=== PATIENT | female | born 1970 | race Hispanic/Latino ===

== ENCOUNTER 2024-10-03 18:29 | Emergency (ER) | payer BC, SELFPAY ==
[2024-10-03] VITALS (22 sets, daily range): BP systolic 106–155; BP diastolic 60–94; BMI 31.9
[2024-10-03] MEDS: NSS 1000 IV (19:46)
[2024-10-03] MEDS: ZOFRAN 4 MG IV (19:47)
[2024-10-03 19:48] LABS: % Basophils 0.7 % (0-2); % Eosinophils 1.2 % (0-6); % Lymphocytes 31.4 % (20.5-51.1); % Monocytes 6.1 % (1.7-9.3); % Neutrophils 58.6 % (42.2-75.2); Absolute Basophils 0.1 10^3/uL (0-0.2); Absolute Eosinophils 0.1 10^3/uL (0-0.7); Absolute Immature Granulocytes 0.2 10^3/uL (0-0.05); Absolute Lymphocytes 3.4 10^3/uL (1.2-3.4); Absolute Monocytes 0.7 10^3/uL (0.1-0.6); Absolute Neutrophils 6.3 10^3/uL (1.4-6.5); Hematocrit 41.4 % (37.0-47.0); Hemoglobin 13.7 g/dL (12.0-16.0); Mean Corp Hgb Conc. 33.1 g/dL (33.0-37.0); Mean Corpuscular Hgb 28.1 pg (27.0-31.0); Mean Platelet Volume 10.4 fL (7.4-10.4); Nucleated Red Blood Cells % 0 %; Platelet Count 208 10^3/uL (130-400); Red Blood Cell Count 4.87 10^6/uL (4.20-5.40); Red Cell Dist. Width 14.4 % (11.5-14.5); White Blood Cell Count 10.8 10^3/uL (4.8-10.8)
[2024-10-03] MEDS: MORPHINE SULFATE 4 MG IV (19:49)
--- NOTE | 2024-10-03 20:04 | ED.GENMED ---
History of Present Illness
General
Chief Complaint: Headache
Time Seen by Provider: 10/03/24 19:31
History of Present Illness
History of Present Illness:
54-year-old female without significant past medical history presenting for headache. Patient reports around 6 PM he was lifting a cabinet and had acute onset of headache, severe with neck pain. Reports that she then went upstairs, felt nauseous
and had an episode of vomiting as well as diarrhea. Denies any known sick contacts or preceding GI illness. Denies chest pain, difficulty breathing, abdominal pain. Denies any recent fever. Denies history of migraines or severe headaches in the
past. Denies visual changes. Denies focal weakness or sensory deficits to her extremities. Denies recent trauma or fall. Denies medical complaints
Phy Exam
Physical Exam
Physical Exam:
General: Well-appearing, no clinical signs of dehydration, nontoxic and in no acute distress
HEENT: protecting airway, pupils equal and reactive
Neck: appears supple, no cervical tenderness
CV: Normal heart rate, regular rhythm
Resp: No accessory muscle use, no increased work of breathing, lungs clear to auscultation bilaterally
Abd: Soft and non-distended, no tenderness to palpation
Extremities: No deformities, no swelling, no erythema, pulses and sensation intact
Neuro: alert, no focal neurologic deficit
: deferred
Rectal: deferred
Psych: Normal affect
Skin: Intact
Course
Orders/Labs/Results
Orders:
Orders
10/03/24 19:37
CT Head W/o Iv Contrast Urgent
Reason For Exam: sudden onset of headache
0.9% Sodium Chloride 1000 ml [Nss] 1,000 ml IV BOLUS
Morphine Sulfate 4 mg IV NOW STA
Ondansetron Injectable [Zofran] 4 mg IV NOW STA
10/03/24 19:42
COVID-19 Antigen Urgent
Source: Nasal Swab
Complete Blood Count/With Diff Urgent
Comprehensive Metabolic Panel Urgent
Influenza A+B Rapid Molecular Urgent
ALEXEI Source: Nasal Swab
Specimen Description:
10/03/24 20:59
CT Head & Neck Angio W/wo IV Urgent
Comment:
Reason For Exam: subarachnoid
Nicardipine 40 mg/200 ml [Cardene] 40 mg in 200 ml IV NOW
Currently infusing. Continue current dose and titrate:: Yes
Titrate to keep:: Other
Titrate to keep other:: systolic <140
Titrate by mg/hr:: 2.5 mg/hr
Frequency of titrations (minutes):: 5-15 minutes
Maximum dose in mg/hr:: 15
Begin to taper infusion when:: Remained at goal for 2hrs
Taper by mg/hr:: 2.5 mg/hr
Frequency of taper (minutes) if patient maintains goal:: every 15-30 minutes
Taper to off?: Yes
If infusion off & no longer maintaining goal:: Contact Provider
10/03/24 21:01
HYDROmorphone [Dilaudid] 1 mg IV NOW STA
Abnormal Lab Results
10/03/24
19:42
Abs Immat Gran (auto) 0.2 H 10^3/uL
(0-0.05)
Absolute Monos (auto) 0.7 H 10^3/uL
(0.1-0.6)
Immature Gran % 2.0 H %
(0-0.5)
Glucose 145 H mg/dl
(70-99)
AST 66 H U/L
(14-36)
ALT 118 H U/L
(0-35)
Alkaline Phosphatase 154 H U/L
(38-126)
10/03/24 19:42
10/03/24 19:42
Vital Signs
Initial and Last Documented VS:
Initial Vital Signs
Temp Pulse Resp BP Pulse Ox
98.2 F 81 16 146/94 98
10/03/24 18:34 10/03/24 18:34 10/03/24 18:34 10/03/24 18:34 10/03/24 18:34
Last Documented Vital Signs
Temp Pulse Resp BP Pulse Ox
98.2 F 76 16 118/70 91
10/03/24 18:34 10/04/24 01:00 10/04/24 00:30 10/04/24 01:00 10/04/24 01:00
MDM/Problems Addressed
MDM/Problems Addressed:
54-year-old female without significant past medical history presenting to the emergency department for acute onset of headache. Vital signs on arrival are normal.
On exam patient is in no acute distress, however uncomfortable. No focal neurologic deficit on exam, however acute onset of headache with exertional activity is concerning for possible subarachnoid hemorrhage. Given acute onset of symptoms, will
initiate workup with CT and CT angio of the brain, given symptoms less than 6 hours from arrival. Patient also had episode of vomiting and diarrhea after headache onset, so viral GI illness such as norovirus is also consideration versus influenza.
Will treat patient with IV fluids, Zofran, morphine and reassess.
20:30 -called by radiology, concern for acute subarachnoid hemorrhage. Message sent to neurosurgery on-call.
20:35 -Per neurosurgery, recommending transfer to [place]. Will consult with [facility]
21:10 -patient accepted to [place]. Requesting CT angio. Will obtain. Recommending Cardene for systolic blood pressure less than 140. Arranging transportation, per neuro okay for ground transport. Family made aware
23:00 -patient remained neurologically stable. Pending ground transfer. Blood pressure stable on Cardene drip
01:00 - Transport arrived. Patient remains alert and neurologically intact, BP controlled.
*Critical Care Note
Total Time (30-74mins, 75-104mins- exclusive of procedures): 55
comment:
The high probability of a clinically significant, sudden or life threatening deterioration of the neurovascular system(s) required my full and direct attention, intervention and personal management. The aggregate critical care time was 55 minutes.
This time is in addition to time spent performing reported procedures but includes the following:
[x] Data Review and interpretation
[x] Patient assessment and monitoring of vital signs
[x] Documentation
[x] Medication orders and management
ED Attending Note
-
Portions of this chart may have been created with voice recognition software.� Occasional wrong word or��sound alike� substitutions may have occurred due to the inherent limitations of voice recognition software.
Discharge Plan
Departure
Patient Disposition: Acute [facility]
Date of Disposition: 10/03/24
Time of Disposition: 21:00
Discharge Problem:
Subarachnoid hemorrhage, Headache
Prescriptions:
No Action
No Current Medications
0
Hospital Transfer
Other hospital: [facility]
I certify that the patient requires transfer: Yes
Discussed case with accepting physician: Dr. Shin
Reason for transfer: specialties available
Interventions
Interventions:
*Risk Screen - Suicide Last Done: 10/03/24 18:34
*General Assessment Last Done: 10/03/24 19:26
*Neglect/Abuse Screening Last Done: 10/03/24 18:34
ED- Fall Risk Assessment Last Done: 10/03/24 19:26
*ED COVID-19 Vaccine History Last Done: 10/03/24 19:26
ED- Neurological Assessment Last Done: 10/03/24 23:00
Discharge Date and Time
Print Language: FRENCH
[2024-10-03 20:08] LABS: ALT (SGPT) 118 U/L (0-35); AST (SGOT) 66 U/L (14-36); Albumin 4.7 g/dl (3.5-5.0); Alkaline Phosphatase 154 U/L (38-126); Blood Urea Nitrogen 13 mg/dl (7-17); Calcium 9.4 mg/dl (8.4-10.2); Carbon Dioxide 24 mmol/L (22-30); Chloride 103 mmol/L (98-107); Estimated Creatinine Clearance 111 ml/min; Glucose 145 mg/dl (70-99); Potassium 3.6 mmol/L (3.5-5.1); Sodium 139 mmol/L (135-145); Total Bilirubin 0.3 mg/dl (0.2-1.3); Total Protein 7.4 g/dl (6.3-8.2); eGFR > 60.00
[2024-10-03 20:19] LABS: COVID-19 Antigen Negative (Negative)
[2024-10-03] MEDS: DILAUDID 1 MG IV (21:14)
[2024-10-03] MEDS: CARDENE 200 IV (21:22)
[2024-10-04] VITALS: BP 104/59
[2024-10-04 00:15] VITALS: BP 113/70
[2024-10-04 00:30] VITALS: BP 110/69
[2024-10-04 00:45] VITALS: BP 113/72
[2024-10-04 01:00] VITALS: BP 118/70
[2024-10-04] MEDS: ZOFRAN 4 MG IV (01:23)
== END 2024-10-04 01:40 | disposition short-term general hospital (02) ==
LOC: EMR 18:29
PROVIDERS: EMERGENCY PHYSICIAN Student in an Organized Health Care Education/Training Program; FAMILY PHYSICIAN Family Medicine
DX: R51.9 Headache, unspecified (principal); M54.2 Cervicalgia; R11.2 Nausea with vomiting, unspecified; R19.7 Diarrhea, unspecified
CPT/HCPCS: 99284; 96374; 96375; 96376; 96361; 70450; 70496; 70498; 80053; 85025; 87502; 87811; Q9967

== ENCOUNTER 2024-11-09 20:21 | Emergency (ER) | payer BC, SELFPAY ==
[2024-11-09 20:23] VITALS: BP 183/103
[2024-11-09 20:51] VITALS: BP 149/86
[2024-11-09 21:00] VITALS: BP 137/81
[2024-11-09 22:04] VITALS: BMI 29.7
[2024-11-09 22:10] VITALS: BP 136/94
[2024-11-09] MEDS: NSS 1000 IV (22:13)
[2024-11-09 22:25] LABS: % Basophils 0.6 % (0-2); % Eosinophils 1.4 % (0-6); % Immature Granulocytes 0.4 % (0-0.5); % Lymphocytes 36.6 % (20.5-51.1); % Monocytes 6.6 % (1.7-9.3); % Neutrophils 54.4 % (42.2-75.2); Absolute Eosinophils 0.1 10^3/uL (0-0.7); Absolute Lymphocytes 1.8 10^3/uL (1.2-3.4); Absolute Monocytes 0.3 10^3/uL (0.1-0.6); Absolute Neutrophils 2.6 10^3/uL (1.4-6.5); Hematocrit 39.9 % (37.0-47.0); Hemoglobin 13.1 g/dL (12.0-16.0); Mean Corp Hgb Conc. 32.8 g/dL (33.0-37.0); Mean Corpuscular Hgb 27.8 pg (27.0-31.0); Mean Corpuscular Volume 84.5 fL (81.0-99.0); Mean Platelet Volume 9.8 fL (7.4-10.4); Nucleated Red Blood Cells % 0 %; Platelet Count 188 10^3/uL (130-400); Red Blood Cell Count 4.72 10^6/uL (4.20-5.40); Red Cell Dist. Width 14.2 % (11.5-14.5); White Blood Cell Count 4.9 10^3/uL (4.8-10.8)
--- NOTE | 2024-11-09 22:26 | ED.GENMED ---
History of Present Illness
General
Chief Complaint: Blood Pressure Problem
Source: patient
Exam Limitations: none
Time Seen by Provider: 11/09/24 21:11
Nursing documentation reviewed up to this point in time: agreed with
History of Present Illness
History of Present Illness:
Patient treated recently for brain aneurysm 1 month ago, currently taking Brilinta, presents to ED secondary to posterior discomfort along with 'feeling of being off', starting this afternoon. At that time, with blood pressures checked at home, it
was noted to be elevated with systolic blood pressure 150. Denies blurred vision. Denies dizziness. Denies loss of sensation or weakness. Denies nausea or vomiting. Of note, patient also has had flulike symptoms recently, consisting of
intermittent cough, body ache, and diarrhea, along with decreased appetite.
Review of Systems
Review of Systems
Allergies reviewed?: Yes
All Other Systems: ROS reviewed and negative except as documented in HPI and ROS
Constitutional: Denies fever
EENT: Reports no symptoms
Respiratory: Reports cough
Cardiac: Reports no symptoms
ABD/GI: Reports diarrhea; Denies abdominal pain
: Reports no symptoms
Musculoskeletal: Reports no symptoms
Skin: Reports no symptoms
Neurological: Reports headache and weakness
Phy Exam
Physical Exam
Physical Exam:
Physical Exam
General: no apparent distress, not acutely ill. afebrile
Head: nc/at. eomi
Neck: supple. normal range of motion.
Heart: s1/s2 regular rate and rhythm, no murmur. equal radial pulses.
Lungs: no acute respiratory distress. clear bilaterally
Abdomen: normal bowel sounds. not tender.
Neuro: alert and oriented x 3. no focal neurological deficits. normal speech.
Skin: no rash
Psychiatric: well kept. interactive and cooperative
Extremities: no edema. no calf tenderness.
Course
Orders/Labs/Results
Orders:
Orders
11/09/24 20:29
CT Head W/o Iv Contrast Urgent
Comment:
Reason For Exam: recent bleed, headache and HTN
11/09/24 21:38
0.9% Sodium Chloride 1000 ml [Nss] 1,000 ml IV BOLUS
Test Result ONCE
11/09/24 22:12
Complete Blood Count/With Diff Urgent
Comprehensive Metabolic Panel Urgent
HCG, Serum Qualitative Screen Urgent
Magnesium Urgent
Influenza A+B Rapid Molecular Urgent
ALEXEI Source: Nasal Swab
Specimen Description:
Abnormal Lab Results
11/09/24
22:12
MCHC 32.8 L g/dL
(33.0-37.0)
Creatinine 0.5 L mg/dL
(0.6-1.0)
Glucose 114 H mg/dl
(70-99)
AST 42 H U/L
(14-36)
ALT 75 H U/L
(0-35)
Alkaline Phosphatase 128 H U/L
(38-126)
11/09/24 22:12
11/09/24 22:12
Vital Signs
Initial and Last Documented VS:
Initial Vital Signs
Temp Pulse Resp BP Pulse Ox
98.3 F 79 18 183/103 97
11/09/24 20:23 11/09/24 20:23 11/09/24 20:23 11/09/24 20:23 11/09/24 20:23
Last Documented Vital Signs
Temp Pulse Resp BP Pulse Ox
98.3 F 68 13 130/84 96
11/09/24 20:23 11/09/24 23:47 11/09/24 23:47 11/09/24 23:47 11/09/24 23:47
MDM/Problems Addressed
MDM/Problems Addressed:
CT head: No acute findings. Patient reports improvement in symptoms after IV hydration. Patient is able to ambulate afterwards, independently, with steady gait. Patient will be discharged home in stable condition, to the care of her family, with
recommendation to follow-up with her primary care physician or neurosurgeon with any further concerns.
*Critical Care Note
Total Time (30-74mins, 75-104mins- exclusive of procedures): Not Applicable
ED Attending Note
-
Portions of this chart may have been created with voice recognition software.� Occasional wrong word or��sound alike� substitutions may have occurred due to the inherent limitations of voice recognition software.
Discharge Plan
Departure
Patient Disposition: Home (Routine Discharge)
Date of Disposition: 11/09/24
Time of Disposition: 23:55
Patient with high blood pressure during this ER visit?: Yes
Condition: Good
Discharge Problem:
Viral syndrome
Instructions: Headaches in adults, Dehydration in adults - ED discharge instructions
Prescriptions:
No Action
No Current Medications
0
Referrals:
NONE,* [Family Provider] -
Activity Restrictions/Additional Instructions:
As discussed, please follow-up with your primary care physician and/or neurosurgeon with any further concerns.
Interventions
Interventions:
*Risk Screen - Suicide Last Done: 11/09/24 20:28
*General Assessment Last Done: 11/09/24 20:28
*Neglect/Abuse Screening Last Done: 11/09/24 20:28
ED- Fall Risk Assessment Last Done: 11/09/24 23:01
*ED COVID-19 Vaccine History Last Done: 11/09/24 20:28
*Nursing Disposition Last Done: 11/10/24 00:00
ED- Cardiac Assessment Last Done: 11/09/24 23:05
ED- Neurological Assessment Last Done: 11/09/24 23:05
ED- Pulmonary Assessment Last Done: 11/09/24 23:05
Discharge Date and Time
Discharge Date/Time: 11/10/24 00:00
Print Language: IRISH
[2024-11-09 22:34] LABS: HCG, Serum Qualitative Screen Negative
[2024-11-09 22:38] LABS: ALT (SGPT) 75 U/L (0-35); AST (SGOT) 42 U/L (14-36); Albumin 4.6 g/dl (3.5-5.0); Alkaline Phosphatase 128 U/L (38-126); Blood Urea Nitrogen 8 mg/dl (7-17); Calcium 9.7 mg/dl (8.4-10.2); Carbon Dioxide 27 mmol/L (22-30); Chloride 104 mmol/L (98-107); Estimated Creatinine Clearance 107 ml/min; Glucose 114 mg/dl (70-99); Magnesium 2.3 mg/dl (1.6-2.3); Potassium 3.7 mmol/L (3.5-5.1); Sodium 141 mmol/L (135-145); Total Bilirubin 0.7 mg/dl (0.2-1.3); Total Protein 7.2 g/dl (6.3-8.2); eGFR > 60.00
[2024-11-09 23:00] VITALS: BP 143/84
[2024-11-09 23:47] VITALS: BP 130/84
== END 2024-11-10 | disposition home or self-care (01) ==
LOC: EMR 20:21
PROVIDERS: EMERGENCY PHYSICIAN Emergency Medicine
DX: B34.9 Viral infection, unspecified (principal); R03.0 Elevated blood-pressure reading, without diagnosis of hypertension
CPT/HCPCS: 99284; 96360; 70450; 80053; 83735; 84703; 85025; 87502

== ENCOUNTER 2025-09-29 20:48 | Observation (INO) | payer BC, SELFPAY ==
[2025-09-29] VITALS (7 sets, daily range): BP systolic 91–150; BP diastolic 65–92; BMI 26.9
--- NOTE | 2025-09-29 16:42 | ED.GENMED ---
History of Present Illness
General
Chief Complaint: Abdominal Symptoms
Source: patient
Exam Limitations: none
Time Seen by Provider: 09/29/25 16:13
History of Present Illness
History of Present Illness:
55yoF with history of brain aneurysm s/p repair, migraines, and IBS presenting for evaluation of abdominal pain. Symptoms initially began in the middle of the night last night. She was having trouble getting in a comfortable position throughout
the night and woke up with persistent abdominal pain. Pain is generalized and comes in waves. She states that it feels like contractions and pain is severe at times. She is also nauseous but has not vomited. She initially thought she may be sick
with a virus as several of her coworkers are sick with norovirus although she had 1 bowel movement today that was normal. She is otherwise asymptomatic and denies any fevers, diarrhea, urinary symptoms, chest pain, shortness of breath. Prior
abdominal surgeries include a urethral sling.
Phy Exam
Physical Exam
Physical Exam:
Appears uncomfortable, non-toxic
General Physical Exam
General Presentation: well appearing
General Skin: warm and dry
General Habitus: normal
General Mental: alert
ENT Exam
ENT Exam: normocephalic
Pulmonary Exam
Pulmonary Exam: no respiratory distress
Gastrointestinal Exam
Gastrointestinal Exam: soft, non distended and other (+Generalized abdominal tenderness. Abdomen soft, non-distended. No rebound or guarding.)
Neurological Exam
Neurological Exam: alert
Arun Coma Scale
Eye Opening: Spontaneous
Verbal Response: Oriented
Motor Response: Obeys Commands
GCS Total Score: 15
Skin Exam
Skin Exam: normal color and warm/dry
Psychiatric Exam
Psychiatric Exam: normal mood/affect
Course
Orders/Labs/Results
Orders:
Orders
09/29/25 16:41
CT Abd/pelvis W Iv Cont Urgent
Comment:
Reason For Exam: generalized abd pain
0.9% Sodium Chloride 1000 ml [Nss] 1,000 ml IV BOLUS
09/29/25 16:58
Complete Blood Count/With Diff Urgent
09/29/25 17:39
Comprehensive Metabolic Panel Urgent
Lipase Urgent
09/29/25 19:58
Electrocardiogram (*1) Urgent
Reason for Study: Vertigo / Dizzy
EKG- Treatment ONCE
09/29/25 20:04
Lactate Level [Lactic Acid] Urgent
Troponin I Urgent
Abnormal Lab Results
09/29/25 09/29/25
16:58 20:04
WBC 11.8 H 10^3/uL
(4.8-10.8)
RBC 5.42 H 10^6/uL
(4.20-5.40)
Abs Immat Gran (auto) 0.1 H 10^3/uL
(0-0.05)
Absolute Neuts (auto) 8.9 H 10^3/uL
(1.4-6.5)
Lymphocytes % 17.9 L %
(20.5-51.1)
Lactic Acid < 0.5 L mmol/L
(0.7-2.0)
09/29/25 16:58
09/29/25 17:39
Vital Signs
Initial and Last Documented VS:
Initial Vital Signs
Temp Pulse Resp BP Pulse Ox
97.7 F 93 18 150/92 98
09/29/25 15:49 09/29/25 15:49 09/29/25 15:49 09/29/25 15:49 09/29/25 15:49
Last Documented Vital Signs
Temp Pulse Resp BP Pulse Ox
97.7 F 71 16 150/92 98
09/29/25 15:49 09/29/25 16:17 09/29/25 17:06 09/29/25 15:49 09/29/25 16:47
MDM/Problems Addressed
Differential Diagnosis Includes:
55yoF here with colicky abd pain and nausea since last night. She is hypertensive with otherwise stable vitals. Patient appears uncomfortable but is non-toxic. No signs of peritonitis on abdominal exam. Differential diagnosis includes: colitis,
enteritis, viral illness, kidney stone, constipation, SBO
Initial ED plan: Check abdominal labs and CT abdomen. IV fluid bolus. She declines analgesics.
*Pulse Oximetry
SaO2: 98
Oxygen Mode of Delivery: Room air
Patient hypoxic: no
*EKG
Interpreted by ED Provider?: Yes
EKG Intrepretation Date: 09/29/25
Heart Rate: 70
Rate: normal
Rhythm: sinus
[place]: normal axis
Interval: normal interval
QRS Pattern: normal QRS
Ischemia: no ischemia
*Critical Care Note
Total Time (30-74mins, 75-104mins- exclusive of procedures): Not Applicable
Update Note
Update Note:
Labs reveal a mild leukocytosis with a WBC of 11.8. CT shows 'Long segment of abnormal small bowel demonstrating bowel wall thickening and diminished attenuation suggesting edema. Associated edema of the small bowel mesentery. There is also mild
associated ascites. Possible considerations include infectious, inflammatory, or ischemic etiology.' On reassessment, patient is feeling worse. She was in the bathroom and urinated when she suddenly became sweaty and felt like she had to pass out.
Repeat BP 91/63. IV fluids hung to gravity. EKG obtained and no ischemic changes noted. BP rapidly improved, suspect vagal episode. Will admit for observation. Lactic acid added.
ED Attending Note
-
Portions of this chart may have been created with voice recognition software.� Occasional wrong word or��sound alike� substitutions may have occurred due to the inherent limitations of voice recognition software.
Discharge Plan
Departure
Patient Disposition: Admit
Date of Disposition: 09/29/25
Time of Disposition: 20:15
Presentation/result/management discussed w/ accepting MD/DO: Hospitalist
Discharge Problem:
Abnormal CT of the abdomen, Abdominal pain
Prescriptions:
No Action
No Current Medications
0
Referrals:
Bayron Mendez MD [Family Provider, Family Practice]
Interventions
Interventions:
*General Assessment Last Done: 09/29/25 17:06
*Neglect/Abuse Screening Last Done: 09/29/25 17:06
*ED COVID-19 Vaccine History Last Done: 09/29/25 16:18
*ED Influenza Vaccine History Last Done: 09/29/25 16:18
[facility] Fall Risk Assessment Tool Last Done: 09/29/25 17:06
*Risk Screen - Suicide (C-SSRS) Last Done: 09/29/25 15:49
[facility] Assessment Last Done: 09/29/25 17:06
Discharge Date and Time
Print Language: TAJIK
[2025-09-29] MEDS: NSS 1000 IV ×2 (16:58→22:23)
[2025-09-29 17:18] LABS: Hematocrit 45.7 % (37.0-47.0); Hemoglobin 15.1 g/dL (12.0-16.0); Mean Corp Hgb Conc. 33.0 g/dL (33.0-37.0); Mean Corpuscular Volume 84.3 fL (81.0-99.0); Nucleated Red Blood Cells % 0 %; Platelet Count 259 10^3/uL (130-400); Red Cell Dist. Width 13.8 % (11.5-14.5)
[2025-09-29 18:02] LABS: ALT (SGPT) 29 U/L (0-35); AST (SGOT) 25 U/L (14-36); Albumin 3.8 g/dl (3.5-5.0); Alkaline Phosphatase 110 U/L (38-126); Blood Urea Nitrogen 14 mg/dl (7-17); Calcium 9.2 mg/dl (8.4-10.2); Carbon Dioxide 28 mmol/L (22-30); Chloride 107 mmol/L (98-107); Glucose 95 mg/dl (70-99); Lipase 84 U/L (23-300); Potassium 4.6 mmol/L (3.5-5.1); Sodium 137 mmol/L (135-145); Total Protein 6.6 g/dl (6.3-8.2); eGFR > 60.00
--- NOTE | 2025-09-29 20:42 | HPS.HSE ---
Family Physician
-
Family Physician: Bayron Tse [facility]
Chief Complaint
-
abdominal pain
History of Present Illness
55-year-old female past medical history of brain aneurysm status post repair, migraines, IBS presenting with abdominal pain. Symptoms started in the middle of last night. Pain is generalized and comes in waves like contractions. She has nausea
without vomiting. She initially thought she may be sick with a viral infection because several of her coworkers developed diarrhea in the past 2 days despite not sharing any food. She had 1 bowel movement today that was normal. Has any fevers,
diarrhea, urinary symptoms, chest pain shortness of breath.
She and her developed congestion and sore throat over the past week which has mostly improved.
She denies smoking. She drinks alcohol occasionally.
Medical History
Past Medical History
Past Medical History: Reports Other ( brain aneurysm status post repair, migraines, IBS)
Past Surgical History: Reports None
Social History
Alcohol: None
Drug: None
Personal: Single
Family History
Family History: Not pertinent
Allergies / Home Medications
Allergies reflects when Allergies were last updated in [facility].
Home Medications with original date entered in [facility]
Allergy/Medication List:
Allergies
Allergy/AdvReac Type Severity Reaction Status Date / Time
adhesive Allergy Mild Rash Verified 09/29/25 15:49
cephalexin (From Keflex) Allergy Mild Rash Verified 09/29/25 15:49
Home Medications
No Meds [No Current Medications] 10/03/24
Review of Systems
-
History Source: Patient
A 12 point ROS was completed and negative except as noted: Yes
Constitutional: Reports No Symptoms
EENT: Reports No Symptoms
Respiratory: Reports No Symptoms
Cardiac: Reports No Symptoms
Abdomen/GI: Reports See HPI
: Reports No Symptoms
Musculoskeletal: Reports No Symptoms
Skin: Reports No Symptoms
Neurological: Reports No Symptoms
Endocrine: Reports No Symptoms
Hematologic/Lymphatic: Reports No Symptoms
Psych: Reports No Symptoms
Physical Exam
Vital Signs
Vital Signs
Temp Pulse Resp BP Pulse Ox
97.7 F 62 18 119/78 98
09/29/25 15:49 09/29/25 20:30 09/29/25 20:30 09/29/25 20:04 09/29/25 16:47
Physical Exam
General: Well Developed, Well Nourished and No Apparent Distress
HEENT: NormoCephalic, Moist mucous membranes and Atraumatic
Respiratory: Clear
Cardiac: S1/S2 and Regular Rhythm; No Murmur or Rub
GI: Soft, Non Tender, Non Distended and Normal Bowel Sounds; No Organomegaly
Rectal: Deferred by Provider
Musculoskeletal: No Clubbing, No Cyanosis and No Edema
Skin: No Rash
Neuro: Nonfocal/grossly intact
Laboratory Results
-
09/29/25 16:58
09/29/25 17:39
Laboratory Results
Lactic Acid < 0.5 mmol/L (0.7-2.0) L 09/29/25 20:04
Total Bilirubin 0.5 mg/dl (0.2-1.3) 09/29/25 17:39
AST 25 U/L (14-36) 09/29/25 17:39
ALT 29 U/L (0-35) 09/29/25 17:39
Alkaline Phosphatase 110 U/L (38-126) 09/29/25 17:39
Lipase 84 U/L (23-300) 09/29/25 17:39
Data Reviewed
-
Lab Data: Labs Reviewed by me
Old Records: Reviewed
Impression/Plan
-
IMPRESSION:
PLAN:
# Infectious enteritis
-CT abdomen pelvis shows moderately prominent fluid distention of the stomach, long segment of mid to distal jejunum and possible proximal ileum circumferential bowel wall thickening with diminished attenuation suggesting edema
- N.p.o.
- IV fluids
- Checks stool culture, norovirus if diarrhea
- Zofran, Dilaudid as needed
Brain aneurysm status post repair
History of migraines
- Continue amitriptyline
History of IBS
Essential hypertension
- Continue lisinopril
Full code
DVT prophylaxis heparin
N.p.o.
[2025-09-29 20:45] LABS: Troponin I < 0.012 ng/ml
--- NOTE | 2025-09-29 21:00 | PTCARENOTE ---
Pt arrived to room 421-01. Pt ambulated from stretcher to bed. Pt AAOx3, VSS. Med rec completed and confirmed with pt, [employer] Que made aware. Oriented to room, call nelson placed within reach.
[2025-09-29] MEDS: ELAVIL 20 MG PO (22:23)
[2025-09-30 07:30] VITALS: BP 108/63
[2025-09-30] MEDS: ASPIR LOW (ENTERIC COATED) 81 MG PO (09:10)
[2025-09-30] MEDS: HEPARIN 5000 UNITS SC ×2 (09:10→19:58)
--- NOTE | 2025-09-30 09:26 | W.PN.HOSP.TC ---
Today's Communication/Plan
-
Advance diet as tolerated
Monitor for worsening symptoms
Assessment / Plan
Assessment / Plan
55yoF PMH brain aneurysm s/p surgery, migraines, HTN, IBS presenting with acute onset of abdominal pain and persistent tenderness.
AFVSS. Continued abdominal tenderness today with resolved nausea. Normal BM. Plan for clear diet and advance as tolerated. Resolution of colicky pain. Concern for partial or intermittent obstruction. Monitor on clears and advance diet as tolerated.
Consider gen surg consult if symptoms worsen.
CT: Long segment of abnormal small bowel demonstrating bowel wall thickening and diminished attenuation suggesting edema. Associated edema of the small bowel mesentery. There is also mild associated ascites. Possible considerations include
infectious, inflammatory, or ischemic etiology. No evidence of pneumatosis. Clinical correlation advised.
#abdominal pain
- Clears. Advance as tolerated
- stop IVF if taking PO
chronic
#migraines
- Continue amitriptyline
#HTN
- continue lisinopril
DVT prophylaxies: heparin
Diet: clears. advance as tolerated
Code: FULL
Anticipated Discharge: Within 24 hours
Subjective/Interval History
-
Date of Service: September 30, 2025
Pt reports cessation of contraction-like 10/10 pains with continued diffuse, low grade pain. BM yesterday without diarrhea. People at work are sick, otherwise no one at home with GI illness. She reports getting over a URI recently but no other
systemic symptoms. Nausea yesterday, none today. Known hemorrhoids of blood when wiping but no blood in stool. Last colonoscopy >5yrs ago. Post menopausal with urethral sling. Follows with fabric inspector and PCP.
Pt reports episode yesterday of possible presyncope where she got really warm, sweaty, and had low BP.
Objective Data
-
Labs:
Laboratory Results
09/30/25
08:40
WBC Pending
Hgb Pending
Hct Pending
Plt Count Pending
Sodium Pending
Potassium Pending
Chloride Pending
Carbon Dioxide Pending
BUN Pending
Creatinine Pending
Glucose Pending
Calcium Pending
Total Bilirubin Pending
AST Pending
ALT Pending
Alkaline Phosphatase Pending
Vital Signs:
Vital Signs
Temp Pulse Resp BP Pulse Ox
98.7 F 63 17 108/63 98
09/30/25 07:30 09/30/25 07:30 09/30/25 07:30 09/30/25 07:30 09/30/25 07:30
Review of Systems
-
History Source: Patient
All other systems: Reviewed and negative
Physical Exam
-
General: Well Developed, Well Nourished and No Apparent Distress
HEENT: Normocephalic, Atraumatic and Moist Mucous Membranes
Respiratory: Clear to Auscultation and Non Labored Respirations
Cardiac: Regular Rhythm and S1/S2
GI: Soft, Nondistended and Tender (epigastric tenderness most severe, diffuse tenderness)
Musculoskeletal: No Edema (trace edema R hand w IV)
Skin: Warm and Dry
Neuro: AO x 3 and Nonfocal/Grossly Intact
Hematologic / Lymphatic: No Lymphadenopathy
Psych: Calm
[2025-09-30 09:27] LABS: Hematocrit 41.1 % (37.0-47.0); Hemoglobin 13.4 g/dL (12.0-16.0); Mean Corp Hgb Conc. 32.6 g/dL (33.0-37.0); Mean Corpuscular Volume 86.5 fL (81.0-99.0); Nucleated Red Blood Cells % 0 %; Platelet Count 240 10^3/uL (130-400); Red Cell Dist. Width 13.9 % (11.5-14.5)
[2025-09-30 09:35] LABS: ALT (SGPT) 25 U/L (0-35); AST (SGOT) 22 U/L (14-36); Albumin 3.4 g/dl (3.5-5.0); Alkaline Phosphatase 91 U/L (38-126); Blood Urea Nitrogen 11 mg/dl (7-17); Calcium 9.1 mg/dl (8.4-10.2); Carbon Dioxide 29 mmol/L (22-30); Chloride 107 mmol/L (98-107); Estimated Creatinine Clearance 84 ml/min; Glucose 90 mg/dl (70-99); Potassium 4.5 mmol/L (3.5-5.1); Sodium 138 mmol/L (135-145); Total Protein 5.8 g/dl (6.3-8.2); eGFR > 60.00
[2025-09-30] MEDS: MIRALAX 17 GRAMS PO (11:42)
[2025-09-30] MEDS: NSS 1000 IV (11:42)
--- NOTE | 2025-09-30 13:36 | PTCARENOTE ---
Patient advanced to clears--patient tolerating diet. Miralax administered. No nausea. Patient is now passing flatus. Will advance diet as tolerated.
[2025-09-30 14:29] VITALS: BP 127/70
[2025-09-30 21:09] VITALS: BP 116/70
[2025-09-30] MEDS: ELAVIL 20 MG PO (21:11)
[2025-09-30] MEDS: ZESTRIL 5 MG PO (21:13)
[2025-09-30 23:42] VITALS: BP 109/64
--- NOTE | 2025-10-01 07:05 | W.PN.HOSP.TC ---
Today's Communication/Plan
-
Advance diet to low residue
Try dicylcomine
Assessment / Plan
Assessment / Plan
55yoF [facility] brain aneurysm s/p surgery, migraines, HTN, IBS presenting with acute onset of abdominal pain and persistent tenderness.
AFVSS. Continued abdominal tenderness today with resolved nausea. Normal BM. Plan for clear diet and advance as tolerated. Resolution of colicky pain. Concern for partial or intermittent obstruction. Monitor on clears and advance diet as tolerated.
Consider gen surg consult if symptoms worsen.
CT: Long segment of abnormal small bowel demonstrating bowel wall thickening and diminished attenuation suggesting edema. Associated edema of the small bowel mesentery. There is also mild associated ascites. Possible considerations include
infectious, inflammatory, or ischemic etiology. No evidence of pneumatosis. Clinical correlation advised.
09/21 AFVSS. Continued cramps overnight and tender today. No BM. Tolerating diet well without nausea or vomiting. Plan to advance to low residue. Try dicyclomine for possible IBS-C related pain.
#abdominal pain
- Clears. Advance as tolerated; low residue today.
- stop IVF if taking PO
chronic
#migraines
- Continue amitriptyline
#HTN
- continue lisinopril
DVT prophylaxies: heparin
Diet: low residue
Code: FULL
Anticipated Discharge: Within 24 hours
Subjective/Interval History
-
Date of Service: October 01, 2025
Pt reports contraction like pain overnight for a short peroid of time; she did not take medications at that time. Now she is reporting continued abdominal tenderness. No BM overnight. However, overall symptoms are improving. Hx IBS-C with BM every
3-4 days or more.
Objective Data
-
Vital Signs:
Vital Signs
Temp Pulse Resp BP Pulse Ox
98.7 F 68 16 109/64 95
09/30/25 23:42 09/30/25 23:42 09/30/25 23:42 09/30/25 23:42 10/01/25 01:26
Review of Systems
-
History Source: Patient
All other systems: Reviewed and negative
Physical Exam
-
General: No Apparent Distress and Comfortable
HEENT: Normocephalic, Atraumatic and Moist Mucous Membranes
Respiratory: Clear to Auscultation and Non Labored Respirations
Cardiac: Regular Rhythm and S1/S2
GI: Soft, Nondistended and Tender (diffusely )
Musculoskeletal: No Edema
Skin: Warm and Dry
Neuro: AO x 3 and Nonfocal/Grossly Intact
Psych: Calm
[2025-10-01 08:21] VITALS: BP 107/72
[2025-10-01 08:42] LABS: Hematocrit 40.9 % (37.0-47.0); Hemoglobin 13.1 g/dL (12.0-16.0); Mean Corp Hgb Conc. 32.0 g/dL (33.0-37.0); Mean Corpuscular Volume 85.0 fL (81.0-99.0); Platelet Count 234 10^3/uL (130-400); Red Cell Dist. Width 13.7 % (11.5-14.5)
[2025-10-01 09:10] LABS: ALT (SGPT) 26 U/L (0-35); AST (SGOT) 24 U/L (14-36); Albumin 4.0 g/dl (3.5-5.0); Alkaline Phosphatase 108 U/L (38-126); Blood Urea Nitrogen 10 mg/dl (7-17); Calcium 9.4 mg/dl (8.4-10.2); Carbon Dioxide 26 mmol/L (22-30); Chloride 103 mmol/L (98-107); Estimated Creatinine Clearance 84 ml/min; Glucose 85 mg/dl (70-99); Potassium 4.7 mmol/L (3.5-5.1); Sodium 137 mmol/L (135-145); Total Protein 6.6 g/dl (6.3-8.2); eGFR > 60.00
[2025-10-01] MEDS: MIRALAX 17 GRAMS PO (09:15)
[2025-10-01] MEDS: ASPIR LOW (ENTERIC COATED) 81 MG PO (09:16)
[2025-10-01] MEDS: HEPARIN 5000 UNITS SC (09:16)
--- NOTE | 2025-10-01 11:25 | CM ---
Patient seen bedside w/ spouse and daughter. Initial assessment completed. Patient is a 55-year-old female past medical history of brain aneurysm status post repair, migraines, IBS presenting with abdominal pain.
Patient resides w/ spouse and their 2 kids in a [facility], no steps. Patient is independent in all areas. No DME. No therapy hx.
PCP: Bayron Mendez. Patient stated she sees the [employer]
[facility]
Patient admitted under obs services. OOBS form verbally reviewed, copy provided, copy on chart
Plan: Home, no needs anticipated
--- NOTE | 2025-10-01 18:29 | W.DCSUMMARY ---
Documented by User: Regina Fontenot MD, Resident 10/01/25 18:46
Discharge Summary
Discharge Data
Date of Admission: 09/29/25
Date of Discharge: 10/01/25
-
Pending Results: No
Hospital Course
55yoF [facility] brain aneurysm s/p surgery, migraines, HTN, IBS presenting with acute onset of abdominal pain and persistent tenderness. Made NPO, IVF. CBC CMP lipase WNL.
Continued abdominal tenderness overnight with resolved nausea. Normal BM. Started on clear diet and advanced as tolerated to low reisdue diet. Try PRN dicyclomine for possible IBS-C related pain. Pain improved, stable for dc.
CT: Long segment of abnormal small bowel demonstrating bowel wall thickening and diminished attenuation suggesting edema. Associated edema of the small bowel mesentery. There is also mild associated ascites. Possible considerations include
infectious, inflammatory, or ischemic etiology. No evidence of pneumatosis. Clinical correlation advised.
Discharge Plan
-
Patient Disposition: Home (Routine Discharge)
Discharge Diagnosis/Procedures: IBS-C
Condition: Fair
Diet: Low Residue
Activity: As tolerated
Driving Restrictions: As prior to admission
Bathing Restrictions: None
Referrals:
Christopher Bailey MD [Active, Gastroenterology]
Bayron Mendez MD [Family Provider, [facility]]
Additional Discharge Medication Instructions: Take bentyl/dicyclomine as needed.
Prescriptions:
New
dicyclomine 10 mg Capsule
10 mg PO QIDPRN PRN (Reason: abdominal cramps) 7 Days Qty: 14 0RF
Continued
amitriptyline 10 mg Tablet
20 mg PO HS
aspirin 81 mg Tablet
81 mg PO DAILY
lisinopril 5 mg Tablet
5 mg PO HS
Discharge Orders:
Discharge Patient (As Directed); Ordered 10/01/25
Ordered By: Regina Fontenot
Discharge Date and Time
Discharge Date/Time: 10/01/25 14:54
Print Language: GREENLANDIC

Documented by User: Raghu Dougherty DO 10/02/25 09:18
Discharge Summary
Discharge Data
Date of Admission: 09/29/25
Date of Discharge: 10/01/25
Total time spent discharging patient (in min): 32
Discharge Plan
-
Patient Disposition: Home (Routine Discharge)
Discharge Diagnosis/Procedures: IBS-C
Condition: Fair
Diet: Low Residue
Activity: As tolerated
Driving Restrictions: As prior to admission
Bathing Restrictions: None
Referrals:
Christopher Bailey MD [Active, Gastroenterology]
Bayron Mendez MD [Family Provider, Family Practice]
Additional Discharge Medication Instructions: Take bentyl/dicyclomine as needed.
Prescriptions:
New
dicyclomine 10 mg Capsule
10 mg PO QIDPRN PRN (Reason: abdominal cramps) 7 Days Qty: 14 0RF
Continued
amitriptyline 10 mg Tablet
20 mg PO HS
aspirin 81 mg Tablet
81 mg PO DAILY
lisinopril 5 mg Tablet
5 mg PO HS
Discharge Orders:
Discharge Patient (As Directed); Ordered 10/01/25
Ordered By: Regina Fontenot
Discharge Date and Time
Discharge Date/Time: 10/01/25 14:54
Print Language: GREENLANDIC
== END 2025-10-01 14:54 | disposition home or self-care (01) ==
LOC: 4 WEST ACU 20:48
PROVIDERS: Physician Assistant; ADMITTING PHYSICIAN Hospitalist; ATTENDING PHYSICIAN Internal Medicine; EMERGENCY PHYSICIAN Emergency Medicine; FAMILY PHYSICIAN Family Medicine
DX: K58.1 Irritable bowel syndrome with constipation (principal); G43.909 Migraine, unspecified, not intractable, without status migrainosus; I10 Essential (primary) hypertension; R18.8 Other ascites
CPT/HCPCS: 74177; 80053; 83605; 83690; 84484; 85025; 85027; 93005; 96360; 99285; G0378; Q9967